=== PATIENT | female | born 1975 | race Hispanic/Latino ===

== ENCOUNTER → 2018-05-12 | Outpatient (CLI) | payer OTHER ==
[~2018-05-12] MED LIST: BIRTH CONTROL PO
== END ==
LOC: MAMMO 09:06
PROVIDERS: ATTEND Obstetrics & Gynecology
DX: Z12.31 Encounter for screening mammogram for malignant neoplasm of breast (principal)
CPT/HCPCS: 77067

== ENCOUNTER → 2020-06-21 | Outpatient (CLI) | payer OTHER | LOC: MAMMO 11:14 | PROVIDERS: ATTEND Obstetrics & Gynecology | DX: Z12.31 Encounter for screening mammogram for malignant neoplasm of breast (principal) | CPT/HCPCS: 77067 ==

== ENCOUNTER → 2020-07-14 | Outpatient (CLI) | payer OTHER | LOC: MAMMO 13:00 | PROVIDERS: ATTEND Obstetrics & Gynecology | DX: R92.8 Other abnormal and inconclusive findings on diagnostic imaging of breast (principal) ==

== ENCOUNTER → 2020-08-10 | Outpatient (CLI) | payer OTHER | LOC: US 08:56 | PROVIDERS: ATTEND Obstetrics & Gynecology | DX: N63.10 Unspecified lump in the right breast, unspecified quadrant (principal) | CPT/HCPCS: 19083; 77065; 88305; A4648 ==

== ENCOUNTER 2021-03-05 22:59 | Emergency (ER) | payer OTHER ==
[~2021-03-05] VITALS: Ht 152.4 cm; Wt 89.4 kg
[2021-03-05] MEDS ORDERED: LORAZEPAM 0.5 MG TAB PO ONE (23:15)
[2021-03-05] MEDS ORDERED: ATIVAN1 MG PO (23:18)
[2021-03-05] MEDS ORDERED: ACETAMINOPHEN 325 MG TAB PO ONE (23:45)
[2021-03-05] MEDS ORDERED: SODIUM CHLORIDE 0.9% 1000ML 1,000 ML IV SCH (23:45)
[2021-03-05] MEDS ORDERED: ACETAMINOPHEN 325 MG TAB ONE (23:55)
[2021-03-05] MEDS ORDERED: SODIUM CHLORIDE 0.9% 1000ML 1,000 ML ONE (23:55)
[2021-03-06] MEDS ORDERED: POTASSIUM CHLORIDE 20 MEQ TAB CR PO STA (00:36)
[2021-03-06] MEDS ORDERED: SODIUM CHLORIDE 0.9% 50ML 50 ML ONE (00:48)
[2021-03-06] MEDS ORDERED: IOPAMIDOL 370 MG/ML 200 ML INFUS..BTL INJ ONE (00:49)
[2021-03-06] MEDS ORDERED: POTASSIUM CHLORIDE 20 MEQ TAB CR PO ONE ×2 (00:56→00:58)
[2021-03-06] MEDS ORDERED: SODIUM CHLORIDE 0.9% 500ML 500 ML IV ONE (01:15)
[2021-03-06] MEDS ORDERED: ONDANSETRON HCL INJ 2MG/ML 2ML 2 MG/ML VIAL IV STA (01:36)
[2021-03-06] MEDS ORDERED: CIPROFLOXACIN 500 MG TAB PO SCH (01:45)
[2021-03-06] MEDS ORDERED: CIPRO500 MG PO (01:55)
[2021-03-06] MEDS ORDERED: PROMETHAZINE HC25 M1 PO (01:56)
[2021-03-06 02:13] VITALS: BP 132/76
== END 2021-03-06 02:13 | disposition home or self-care (01) ==
LOC: FSED 23:15
DX: R50.9 Fever, unspecified (principal); K52.9 Noninfective gastroenteritis and colitis, unspecified; E86.0 Dehydration; E87.6 Hypokalemia; Z20.822 Contact with and (suspected) exposure to COVID-19
CPT/HCPCS: 74160; 80053; 81003; 85025; 96374; 99284; J2405; J7030; Q9967; U0002

== ENCOUNTER → 2022-11-27 | Outpatient (CLI) | payer OTHER ==
[~2022-11-27] MED LIST changes: +ATIVAN1 MG PO; +CIPRO500 MG PO; +PROMETHAZINE HC25 M1 PO
== END ==
LOC: DX 10:22
PROVIDERS: ATTEND Internal Medicine
DX: Z13.820 Encounter for screening for osteoporosis (principal); J41.0 Simple chronic bronchitis
CPT/HCPCS: 71046; 77080

== ENCOUNTER → 2023-12-03 | Outpatient (REF) | payer OTHER | LOC: MAMMO 10:40 | PROVIDERS: ATTEND Internal Medicine | DX: Z12.31 Encounter for screening mammogram for malignant neoplasm of breast (principal) | CPT/HCPCS: 77067 ==

== ENCOUNTER → 2025-01-19 | Outpatient (REF) | payer OTHER | LOC: MAMMO 12:24 | PROVIDERS: ATTEND Internal Medicine | DX: Z12.31 Encounter for screening mammogram for malignant neoplasm of breast (principal); Z13.820 Encounter for screening for osteoporosis | CPT/HCPCS: 77067; 77080 ==

== ENCOUNTER → 2025-05-26 | Day surgery (SDC) | payer OTHER ==
[2025-05-20 09:33] LABS: BASOPHILS % 1.0 % (0.0-1.0); EOSINOPHILS % 5.3 % (0.0-6.0); LYMPHOCYTES % 33.3 % (18.0-39.1); MONOCYTES % 4.4 % (4.4-11.3); NEUTROPHILS % 55.7 % (38.7-80.0); RED CELL DISTRIBUTION WIDTH 14.4 % (11.7-14.4)
[~2025-05-26] MED LIST changes: +AMBIEN10 MG PO; +ASPIRIN81 MG PO; +FOLIC ACID0.4 MG PO; +GLUCAGON FOR INJ 1 MG VIAL ONE; +HYOSCYAMINE SULFATE 0.5 MG/ML INJ ONE; +LIDOCAINE HCL 2% LOCAL INJ 5 ML SDV VIAL INJ ONE; +MOUNJARO7.5 MG/0.5 INJ; +PROPOFOL IV EMULSION 10 MG/ML 20 ML VIAL ONE; +TRICOR145 MG PO
[2025-05-26] MEDS: LACTATED RINGER'S 1,000 ML ONE (11:02)
[2025-05-26 14:30] VITALS: BP 124/80; PULSE 75; RESP 17; TEMP 97.6; O2SAT 95
== END | disposition home or self-care (01) ==
LOC: OR 10:30
PROVIDERS: ATTEND Internal Medicine Gastroenterology
DX: Z12.11 Encounter for screening for malignant neoplasm of colon (principal); D12.2 Benign neoplasm of ascending colon; K62.1 Rectal polyp; K57.30 Diverticulosis of large intestine without perforation or abscess without bleeding; K64.8 Other hemorrhoids; D64.9 Anemia, unspecified; E78.1 Pure hyperglyceridemia; E78.5 Hyperlipidemia, unspecified; E66.01 Morbid (severe) obesity due to excess calories; F41.9 Anxiety disorder, unspecified; F17.210 Nicotine dependence, cigarettes, uncomplicated; Z01.810 Encounter for preprocedural cardiovascular examination; Z01.812 Encounter for preprocedural laboratory examination; Z79.82 Long term (current) use of aspirin; Z79.85 Long-term (current) use of injectable non-insulin antidiabetic drugs; Z79.899 Other long term (current) drug therapy; Z68.36 Body mass index [BMI] 36.0-36.9, adult; Z71.3 Dietary counseling and surveillance
CPT/HCPCS: 36415; 45378; 45385; 85025; 93005; J1610; J1980; J2003